=== PATIENT | female | born 1985 | race Caucasian/White ===

== ENCOUNTER 2019-10-10 04:10 | Emergency (ER) | payer OTHER, SELFPAY ==
[~2019-10-10] VITALS: Ht 170.2 cm; Wt 77.4 kg
[2019-10-10 04:10] VITALS: BP 131/82
[2019-10-10] MEDS ORDERED: SYNT25TA PO (04:17)
[2019-10-10] MEDS ORDERED: ADVI200C18 PO (04:17)
[2019-10-10 06:19] LABS: INFLUENZA A AMPLIFICATION NEGATIVE (NEGATIVE); INFLUENZA B AMPLIFICATION NEGATIVE (NEGATIVE)
[2019-10-10] MEDS ORDERED: AUGM500T34 PO (06:42)
[2019-10-10] MEDS ORDERED: AUGMENTIN 875 MG TAB PO ONE (06:45)
== END 2019-10-10 06:57 | disposition home or self-care (01) ==
LOC: M ED 04:10
DX: J02.9 Acute pharyngitis, unspecified (principal); Z79.899 Other long term (current) drug therapy